=== PATIENT | female | born 1980 | race Caucasian/White ===

== ENCOUNTER 2019-05-16 15:31 | Outpatient (CLI) | payer OTHER, SELFPAY ==
[2019-05-22 14:29] LABS: Testosterone, Free 0.76 ng/dL (0.06-1.00); Testosterone, Total 40 ng/dL (8-60)
== END 2019-05-16 15:51 ==
PROVIDERS: PCP Family Medicine; Visit Provider Obstetrics & Gynecology Gynecology
DX: L68.0 Hirsutism (principal)
CPT/HCPCS: 36415; 84402; 84403

== ENCOUNTER → 2020-12-02 02:59 | Outpatient (CLI) | payer BC, SELFPAY ==
[2020-12-02 07:41] LABS: Hemoglobin A1C 5.5 % (<5.7)
[2020-12-02 09:34] LABS: Anion Gap 7.5 mmol/L (3-11); BUN 12 mg/dL (7-18); CO2 26.5 mmol/L (21.0-32.0); CREATININE 0.91 mg/dL (0.55-1.02); Calcium 8.8 mg/dL (8.5-10.1); Calculated LDL 143 mg/dL (<100); Chloride 101 mmol/L (98-107); Cholesterol 230 mg/dL (<200); Glucose 85 mg/dL (74-106); HDL Cholesterol 62 mg/dL (40-60); Potassium 4.3 mmol/L (3.5-5.1); Sodium 135 mmol/L (136-145); TSH (W/Ref FT4) 1.72 uIU/mL (0.36-3.74); Triglyceride 128 mg/dL (<150)
== END ==
PROVIDERS: PCP Family Medicine; Visit Provider Nurse Practitioner Family
DX: I10 Essential (primary) hypertension (principal); Z13.220 Encounter for screening for lipoid disorders; Z13.1 Encounter for screening for diabetes mellitus; Z13.29 Encounter for screening for other suspected endocrine disorder
CPT/HCPCS: 36415; 80048; 80061; 83036; 84443

== ENCOUNTER 2021-01-28 17:04 | Outpatient (REF) | payer BC, SELFPAY | END 2021-01-28 17:05 | disposition home or self-care (01) | LOC: LBN 17:04 | PROVIDERS: PCP Family Medicine; Visit Provider Nurse Practitioner Adult Health | DX: J02.9 Acute pharyngitis, unspecified (principal) | CPT/HCPCS: 87070 ==

== ENCOUNTER 2021-11-21 16:24 | Outpatient (REF) | payer BC, SELFPAY ==
--- NOTE | 2021-11-21 15:50 | PAPFT_PTH ---
PATIENT: Tammy Hester LOC: [facility] U#:[id number] AGE/SX: 41/F ROOM: RE11/21/[address]: Meghan Burton NP : 1980 BED: DIS: 11/21/2021 SPEC #: [id number] RECD: 11/22/21 12:46 STATUS: LEONARD REYobani #: [id number] NASRA: 11/21/21 15:[address]: Meghan Burton NP DEPT: REPLACED BY [facility] Cytology RECD BY: Radha Casillas ENTERED: 11/22/21 12:46 SP TYPE: PAPFT OTHR DR: Horacio Leach NP Tissues: 1 - CX/ENDOCX FOR PAP SMEARS Procedures: PAP THIN PREP/UVM Screening HPV DNA PROBE Comments: [id number]
== END 2021-11-21 16:25 | disposition home or self-care (01) ==
LOC: LBN 16:24
PROVIDERS: PCP Nurse Practitioner Family; Visit Provider Nurse Practitioner Women's Health
DX: Z12.4 Encounter for screening for malignant neoplasm of cervix (principal); Z11.51 Encounter for screening for human papillomavirus (HPV)
CPT/HCPCS: 88142; 87624

== ENCOUNTER 2023-07-18 20:09 | Outpatient (CLI) | payer MEDICAID, SELFPAY ==
[2023-07-18 16:12] LABS: CREATININE 0.9 mg/dL (0.55-1.02); Estimated GFR 81.86 (mL/min/1.73m2); Potassium 3.9 mmol/L (3.5-5.1)
== END 2023-07-18 20:10 | disposition home or self-care (01) ==
LOC: LBO 20:09
PROVIDERS: PCP Nurse Practitioner Family; Visit Provider Nurse Practitioner Family
DX: I10 Essential (primary) hypertension (principal)
CPT/HCPCS: 36415; 82565; 84132

== ENCOUNTER → 2023-08-01 00:07 | Outpatient (CLI) | payer MEDICAID, SELFPAY ==
--- NOTE | 2023-08-01 09:00 | DI.MAMMO_ITS ---
Exam(s) MAMMO SCREENING EXAM: MAMMO SCREENING CLINICAL HISTORY: SCREENING, Z12.39. TECHNIQUE: Bilateral full field digital CC and MLO mammographic images were obtained with 3D tomosyn thesis and utilizing computer aided detection (CAD). COMPARISON: None. This is a baseline mammogram on this 43-year-old patient FINDINGS: No significant findings in left breast. In the right breast there is an asymmetric density located 2 cm in from the nipple on the MLO view me asuring approximately 4 x 4 mm. On the CC view of the right breast there are 2 small nodular densiti es located anteriorly behind the nipple and laterally. Spot compression views recommended. There are no malignant-appearing microcalcification of side either breast. There is no significant architectural distortion nor skin thickening-retraction. IMPRESSION: 1. No radiographic evidence of malignancy in left breast. 2. Nodular densities in the right breast as described above. Spot compression views and ultrasound r ecommended. Category: Density: Breast density Category C or D implies that the patient has dense breast tissue. Dense breast tissue can make it harder to find cancer on a mammogram. Dense breast tissue is also associated with an incr eased risk of breast cancer. This information about the result of the mammogram report was provided to the patient to raise their awareness. Use this report when you speak with the patient about their risks for breast cancer, which includes their family history. At that time, you may recommend additional screening tests (Ultrasoun d or MRI) as these tests may add significant information. A negative radiographic report should not delay biopsy if a dominant or clinically suspicious mass is present. Up to ten percent of cancers are not identified on mammography. A negative report may reinforce clinical impression. Adenosis and dense breasts may obscure an underlying neoplasm. False positive reports average 6 to 10%. Patient will receive a letter notifying them of these results.
== END ==
PROVIDERS: PCP Nurse Practitioner Family; Visit Provider Nurse Practitioner Women's Health
DX: Z12.31 Encounter for screening mammogram for malignant neoplasm of breast (principal)
CPT/HCPCS: 77063; 77067

== ENCOUNTER → 2023-08-08 02:30 | Outpatient (CLI) | payer MEDICAID, SELFPAY ==
--- NOTE | 2023-08-08 | DI.US_ITS ---
Exam(s) MG MAMMO SCREEN CALL BACK UNI US BREAST RT COMPLETE EXAM: MG MAMMO SCREEN CALL BACK UNI-RIGHT AND COMPLETE RIGHT BREAST ULTRASOUND CLINICAL HISTORY: F/U MAMMO, NODULAR DENSITIES RT BREAST. TECHNIQUE: Unilateral spot mammographic images obtained with 3D tomosynthesisand utilizing computer aided detection (CAD). . Complete RIGHT breast Ultrasound was also performed, including all 4 quadrants, the retroareolar sinan on, and the ipsilateral axilla. COMPARISON: Prior mammograms were reviewed. This additional imaging was performed due to findings described on the recent baseline screening screening mammogram of 08/01/2023. FINDINGS: DIAGNOSTIC MAMMOGRAM: Additional mammographic views performed todaydo not completely dissipate the nodules. We proceeded w ith ultrasound. COMPLETE RIGHT BREAST ULTRASOUND: Ultrasound performed today reveals a 2-3 millimeter microcysts at 12 o'clock position corresponding t o 1 of the findings on the mammogram. At 7 o'clock position there is slight least larger benign micr ocyst noted which measures 5 x 3 mm, also correspond to 1 of the findings on the mammogram.. Third f inding has appearance of a conglomeration of microcysts at 12 o'clock retroareolar position which donato sures 8 x 5 mm. Scanning of the ipsilateral axilla reveals no significant adenopathy. IMPRESSION: 1. Benign-appearing right breast findings as described individually above. Appropriate follow-up as discussed by myself with the patient today is repeat right breast mammogram and ultrasound in 6 months. The patient was informed of these findings and recommendations by myself prior to leaving the departm ent today. BI-RADS Category 3 - 6 month - Probably Benign Finding: Recommend follow-up mammography in 6 months Breast Density - Category B - Scattered areas of fibroglandular density Breast density Category C or D implies that the patient has dense breast tissue. Dense breast tissue can make it harder to find cancer on a mammogram. Dense breast tissue is also associated with an incr eased risk of breast cancer. This information about the result of the mammogram report was provided to the patient to raise their awareness. Use this report when you speak with the patient about their risks for breast cancer, which includes their family history. At that time, you may recommend additional screening tests (Ultrasoun d or MRI) as these tests may add significant information. A negative radiographic report should not delay biopsy if a dominant or clinically suspicious mass is present. Up to ten percent of cancers are not identified on mammography. A negative report may reinforce clinical impression. Adenosis and dense breasts may obscure an underlying neoplasm. False positive reports average 6 to 10%. Patient will receive a letter notifying them of these results.
[2023-08-08 16:19] LABS: TSH (W/Ref FT4) 1.41 uIU/mL (0.36-3.74)
== END ==
PROVIDERS: PCP Nurse Practitioner Family; Visit Provider Nurse Practitioner Family
DX: Z13.31 Encounter for screening for depression (principal); N63.15 Unspecified lump in the right breast, overlapping quadrants
CPT/HCPCS: 36415; 76642; 77063; 77067; 84443

== ENCOUNTER 2023-08-08 14:53 | Outpatient (REF) | payer MEDICAID, SELFPAY ==
--- NOTE | 2023-08-08 14:30 | PAPFT_PTH ---
PATIENT: Tammy Hester LOC: [facility] U#:[id number] AGE/SX: 43/F ROOM: RE08/08/[address]: Meghan Burton NP : 1980 BED: DIS: 08/08/2023 SPEC #: [id number] RECD: 08/08/23 18:12 STATUS: LEONARD REQ #: [id number] NASRA: 08/08/23 14:[address]: Meghan Burton NP DEPT: [facility] Cytology RECD BY: Rahda Casillas ENTERED: 08/08/23 18:12 SP TYPE: PAPFT OTHR DR: Horacio Leach NP Tissues: 1 - CX/ENDOCX FOR PAP SMEARS Procedures: PAP THIN PREP/UVM Screening HPV DNA PROBE Comments: [id number]
== END 2023-08-08 14:54 | disposition home or self-care (01) ==
LOC: LBN 14:53
PROVIDERS: PCP Nurse Practitioner Family; Visit Provider Nurse Practitioner Women's Health
DX: Z12.4 Encounter for screening for malignant neoplasm of cervix (principal); Z11.51 Encounter for screening for human papillomavirus (HPV); R87.810 Cervical high risk human papillomavirus (HPV) DNA test positive
CPT/HCPCS: 88142; 87624

== ENCOUNTER 2023-08-09 16:39 | Outpatient (REF) | payer MEDICAID, SELFPAY ==
[2023-08-13 12:57] LABS: Helicobacter pylori Ag, Feces Negative (Negative)
== END 2023-08-09 16:40 | disposition home or self-care (01) ==
LOC: LBN 16:39
PROVIDERS: PCP Nurse Practitioner Family; Visit Provider Nurse Practitioner Family
DX: E66.9 Obesity, unspecified (principal)
CPT/HCPCS: 87338

== ENCOUNTER → 2024-03-04 04:05 | Outpatient (CLI) | payer OTHER, SELFPAY ==
--- NOTE | 2024-03-04 08:15 | DI.US_ITS ---
Exam(s) MG MAMMO DIAGNOSTIC UNI US BREAST RT LIMITED EXAM: MG MAMMO DIAGNOSTIC UNI CLINICAL HISTORY: 6 month f/u,rt breast microcysts,r92.8. COMPARISON: MG MG MAMMO SCREENING from 08/01/2023 MG MG MAMMO SCREEN CALL BACK UNI from 08/08/2023 US US BREAST RT COMPLETE from 08/08/2023 US US BREAST RT LIMITED from 03/04/2024 TECHNIQUE: Craniocaudal and mediolateral oblique Full Field Digital Mammography views of the right b reast with Computer Aided Diagnosis followed by Tomosynthesis and right breast ultrasound. FINDINGS: Mammography/Tomosynthesis: Masses/Architectural Distortion: Stable small nodule lateral anterior breast. Stable small nodules i n the subareolar region. Microcalcifications: No suspicious pleomorphic-type are seen. Skin Thickening/Nipple Retraction: None. Right breast US: Echotexture: Normal appearance of the glandular tissue. Shadowing: No suspicious foci. Cyst: 3 x 2 x 2 millimeter cyst 12 o'clock position 3 cm from the nipple. simple cyst 5 x 3 x 4 mill imeters 2 cm from the nipple in the 7 o'clock position. Solid lesions: None seen. Ductal dilation: None. IMPRESSION: 1. No evidence of malignancy is noted. 2. Unless there is more urgent need, follow-up screening mammography is recommended, due in 6 months BI-RADS Category 2 - Benign Findings Density: Breast density category C or D implies that the patient has dense breast tissue. Dense breast tissue is very common and is not abnormal but dense breast tissue can make it harder to find cancer on a ma mmogram. Also, dense breast tissue may increase their breast cancer risk. This information about the result of the mammogram report was provided to the patient to raise their awareness. Use this report when you speak with the patient about their risks for breast cancer, which includes their family hist ory. At that time, you may recommend for more screening tests (Ultrasound or MRI) as they might be us eful based on their risk. A negative radiographic report should not delay biopsy if a dominant or clinically suspicious mass is present. Up to ten percent of cancers are not identified on mammography. A negative report may reinforce clinical impression. Adenosis and dense breasts may obscure an underlying neoplasm. False positive reports average 6 to 10%. Patient will receive a letter notifying them of these results.
== END ==
PROVIDERS: PCP Nurse Practitioner Family; Visit Provider Nurse Practitioner Women's Health
DX: R92.8 Other abnormal and inconclusive findings on diagnostic imaging of breast (principal); Z12.31 Encounter for screening mammogram for malignant neoplasm of breast
CPT/HCPCS: 76642; 77061; 77065; G0279

== ENCOUNTER 2024-09-24 15:58 | Outpatient (REF) | payer OTHER, SELFPAY ==
--- NOTE | 2024-09-24 15:45 | PAPFT_PTH ---
PATIENT: Tammy Hester LOC: [facility] U#:[id number] AGE/SX: 44/F ROOM: RE09/24/[address]: Meghan Burton NP : 1980 BED: DIS: 09/24/2024 SPEC #: [id number] RECD: 09/24/24 17:56 STATUS: LEONARD REQ #: [id number] NASRA: 09/24/24 15:[address]: Meghan Burton NP [facility] Cytology RECD BY: Radha Casillas ENTERED: 09/24/24 17:56 SP TYPE: PAPFT OTHR DR: Horacio Leach NP Tissues: 1 - CX/ENDOCX FOR PAP SMEARS Procedures: PAP THIN PREP/UVM Screening HPV DNA PROBE Comments: [id number] (HPV 16 & 18/45)
== END 2024-09-24 15:59 | disposition home or self-care (01) ==
LOC: LBN 15:58
PROVIDERS: PCP Nurse Practitioner Family; Visit Provider Nurse Practitioner Women's Health
DX: Z12.39 Encounter for other screening for malignant neoplasm of breast (principal); Z01.419 Encounter for gynecological examination (general) (routine) without abnormal findings; Z30.431 Encounter for routine checking of intrauterine contraceptive device; Z12.31 Encounter for screening mammogram for malignant neoplasm of breast; Z12.4 Encounter for screening for malignant neoplasm of cervix; N77.1 Vaginitis, vulvitis and vulvovaginitis in diseases classified elsewhere
CPT/HCPCS: 88142; 87624

== ENCOUNTER 2024-11-03 01:44 | Outpatient (CLI) | payer OTHER, SELFPAY ==
--- NOTE | 2024-11-03 07:30 | DI.MAMMO_ITS ---
Exam(s) MAMMO SCREENING EXAM: MAMMO SCREENING CLINICAL HISTORY: screening. TECHNIQUE: Bilateral full field digital CC and MLO mammographic images were obtained with 3D tomosyn thesis and utilizing computer aided detection (CAD). COMPARISON: Prior mammograms were reviewed. FINDINGS: There has been no significant change in the appearance and distribution of the fibroglandular tissue. No CAD designations. There are no new spiculated masses nor malignant appearing microcalcification groups. Previously described nodular densities in the right breast are actually less evident on the present s tudy. These were shown to be benign cysts on prior ultrasound exams. There is no significant architectural distortion nor skin thickening-retraction. IMPRESSION: No radiographic evidence of malignancy. BI-RADS Category 1 - Negative Breast Density - Category B - Scattered areas of fibroglandular density Breast density Category C or D implies that the patient has dense breast tissue. Dense breast tissue can make it harder to find cancer on a mammogram. Dense breast tissue is also associated with an incr eased risk of breast cancer. This information about the result of the mammogram report was provided to the patient to raise their awareness. Use this report when you speak with the patient about their risks for breast cancer, which includes their family history. At that time, you may recommend additional screening tests (Ultrasoun d or MRI) as these tests may add significant information. A negative radiographic report should not delay biopsy if a dominant or clinically suspicious mass is present. Up to ten percent of cancers are not identified on mammography. A negative report may reinforce clinical impression. Adenosis and dense breasts may obscure an underlying neoplasm. False positive reports average 6 to 10%. Patient will receive a letter notifying them of these results.
== END 2024-11-03 02:04 ==
PROVIDERS: PCP Nurse Practitioner Family; Visit Provider Nurse Practitioner Women's Health
DX: Z12.31 Encounter for screening mammogram for malignant neoplasm of breast (principal); R92.323 Mammographic fibroglandular density, bilateral breasts
CPT/HCPCS: 77063; 77067